=== PATIENT | male | born 1950 | race Caucasian/White ===

== ENCOUNTER 2019-10-30 06:22 | Outpatient (CLI) | payer MEDICARE, BC, OTHER ==
[2019-10-30 12:45] VITALS: BMI 28.5
[2019-10-30 14:49] LABS: #Eosinphils 0.4 thou/uL (0.0-0.7); #Lymphocytes 1.9 thou/uL (1.20-3.40); #Monocytes 0.8 thou/uL (0.11-0.59); #Neutrophils 3.5 thou/uL (1.40-6.50); %Basophils 0.7 % (0.0-1.0); %Eosinophils 6.3 % (0.0-10.0); %Lymphocytes 28.6 % (21.0-51.0); %Monocytes 12.3 % (0.0-10.0); %Neutrophils 52.1 % (42.0-75.0); Hemoglobin 13.6 g/dL (14.0-18.0); Mean Corpuscular HGB CONC 33.4 g/dL (32.0-36.0); Mean Platelet Volume 7.1 fL (7.4-10.4); Platelet Count 231 thou/uL (130-400); RBC Distribution Width 11.3 % (11.5-14.5); Red Blood Cell (RBC) Count 3.88 mill/uL (4.70-6.10); White Blood Cell (WBC) Count 6.6 thou/uL (4.8-10.8)
[2019-10-30 15:04] LABS: ALT (SGPT) 12 U/L (8-55); AST (SGOT) 18 U/L (5-34); Albumin 3.7 g/dL (3.4-4.8); Alkaline Phosphatase 56 U/L (40-110); Anion Gap 11 mmol/L (10-20); BUN (Urea Nitrogen) 17 mg/dL (8.4-25.7); Bilirubin, Total 0.3 mg/dL (0.2-1.2); Calc. Creatinine Clearance 59 mL/min (70-130); Calcium 9.1 mg/dL (7.8-10.44); Carbon Dioxide 24 mmol/L (23-31); Chloride 104 mmol/L (98-107); Estimated GFR-MDRD 44; Globulin 3.3 g/dL (2.4-3.5); Glucose 100 mg/dL (80-115); Sodium 135 mmol/L (136-145)
--- NOTE | 2019-10-30 21:15 | EKG ---
Test Reason : Blood Pressure : / mmHG Vent. Rate : 075 BPM Atrial Rate : 075 BPM P-R Int : 154 ms QRS Dur : 076 ms QT Int : 410 ms P-R-T Axes : 035 069 078 degrees QTc Int : 457 ms Normal sinus rhythm Nonspecific T wave abnormality Abnormal ECG When compared with ECG of 03-SEP-2016 10:01, Criteria for Anterior infarct are no longer Present Nonspecific T wave abnormality has replaced inverted T waves in Lateral leads Confirmed by Karlene GARIBAY ([id number]) on 10/30/2019 9:14:32 PM Referred By: RAY Confirmed By:Karlene GARIBAY
[2019-10-31 11:18] LABS: SARS-CoV-2 MS2 Positive; SARS-CoV-2 N Gene Negative; SARS-CoV-2 S Gene Negative; SARS-CoV-2 orf1ab Negative
== END 2019-10-30 06:23 | disposition home or self-care (01) ==
LOC: LABBT 06:22
PROVIDERS: ATTEND Specialist
DX: Z01.818 Encounter for other preprocedural examination (principal); Z11.59 Encounter for screening for other viral diseases; K80.12 Calculus of gallbladder with acute and chronic cholecystitis without obstruction; K44.9 Diaphragmatic hernia without obstruction or gangrene; K57.90 Diverticulosis of intestine, part unspecified, without perforation or abscess without bleeding
CPT/HCPCS: 80053; 85025; 93005; U0003; 87635; 93010

== ENCOUNTER 2019-11-02 10:27 | Day surgery (SDC) | payer MEDICARE, BC ==
[2019-11-02] MEDS ORDERED: Ketorolac Tromethamine 30 MG/ML VIAL ONE (10:38)
[2019-11-02] MEDS ORDERED: Acetaminophen 500 MG TAB ONE (10:38)
[2019-11-02] MEDS ORDERED: Lidocaine 1% w/Epinephrine 1:100K 20 ML VIAL ONE (11:26)
[2019-11-02] MEDS ORDERED: Bupivacaine 0.25% HCL 30 ML VIAL ONE (11:26)
[2019-11-02] MEDS ORDERED: Fentanyl 100 MCG/2 ML VIAL ONE (12:56)
[2019-11-02] MEDS ORDERED: Midazolam HCl 2 mg/2 ml Vial ONE (12:56)
[2019-11-02] MEDS ORDERED: Ondansetron PF 4 MG/2 ML Vial ONE (14:31)
[2019-11-02] MEDS ORDERED: Lidocaine 1% PF 5 ML VIAL ONE (14:31)
[2019-11-02] MEDS ORDERED: Glycopyrrolate 0.2 MG/ML 5 ML SYRINGE ONE (14:31)
[2019-11-02] MEDS ORDERED: Rocuronium Bromide 10 MG/ML (10ML VIAL) ONE (14:31)
[2019-11-02] MEDS ORDERED: PROPOFOL 200 MG/20 ML VIAL ONE (14:31)
[2019-11-02] MEDS ORDERED: Dexamethasone 20 MG/5 ML VIAL ONE (14:31)
[2019-11-02] MEDS ORDERED: SUGAMMADEX SODIUM 200 MG/2 ML VIAL ONE (14:52)
--- NOTE | 2019-11-04 07:34 | OP ---
DATE OF PROCEDURE: 11/02/2019 PREOPERATIVE DIAGNOSES: Cholelithiasis, cholecystitis. POSTOPERATIVE DIAGNOSES: Cholelithiasis, cholecystitis. PROCEDURE PERFORMED: Laparoscopic cholecystectomy. ANESTHESIA: General endotracheal. INDICATIONS: The patient is a 69-year-old white male. He has had about 8 weeks of persistent symptoms of gallbladder associated pain. He has had at least one emergency room visit during this time. He is taken to the operative room at this time for laparoscopic cholecystectomy. PROCEDURE IN DETAIL: Informed consent was obtained. The patient was taken to the operating room where general endotracheal anesthesia was obtained with the patient in the supine position. The abdomen was prepped with Betadine and draped in the usual sterile fashion. 0.25% Marcaine with epinephrine was infiltrated below the umbilicus and a 10 mm infraumbilical incision was created. A Veress needle was passed through this incision into the peritoneal cavity. A pneumoperitoneum was established using carbon dioxide up to a pressure of 15 mmHg. Local anesthetic was infiltrated and 3 additional 5 mm right upper quadrant incisions were created. Through the mid incision, a 5 mm port was passed into the peritoneal cavity. The camera was passed through this port and under direct vision, an 11 port was passed through the infraumbilical incision. The camera was replaced through this port, and under direct vision, 2 additional 5 mm ports were passed through the incisions already created. The gallbladder was grasped and retracted in a cephalad direction. Minimal adhesions were bluntly stripped away from the apex of the gallbladder, and the apex was retracted laterally and inferiorly. Careful dissection was carried out to the apex of the gallbladder to identify the cystic duct and cystic artery. These were each carefully dissected circumferentially. The duct was of normal caliber. Both the duct and the artery were divided between clips, leaving 2 on the side to remain within the abdomen. The gallbladder was then dissected out of the gallbladder fossa using electrocautery and removed through the infraumbilical port site. The fascia was closed with 0 Vicryl suture and a GraNee needle. The right upper quadrant was inspected and irrigated. All irrigant was aspirated. All ports and instruments were removed under direct vision. Pneumoperitoneum was carefully evacuated. Additional local anesthetic was infiltrated into each port site. The skin edges were approximated with 4-0 Monocryl subcuticular sutures, and Dermabond was placed externally. There were no complications. The patient tolerated the procedure well and was taken to the recovery room in stable condition. FINDINGS: The patient had a chronically inflamed gallbladder. The gallbladder wall was thickened and there were substantial pericholecystic adhesions and inflammatory changes. The duct was so inflamed that it actually tore with retraction, forcing me to find the divided proximal end. This was done and it was ligated appropriately with clips. There was no significant blood loss during the operation. There were no complications. The patient tolerated the procedure well and was taken to the recovery room in stable condition. Job ID: [id number]
== END 2019-11-02 16:25 | disposition home or self-care (01) ==
LOC: SDC 10:27
PROVIDERS: ATTEND Specialist
PROC: 0FT44ZZ Resection of Gallbladder, Percutaneous Endoscopic Approach (ICD-10-PCS; principal; 2019-11-02)
DX: K80.12 Calculus of gallbladder with acute and chronic cholecystitis without obstruction (principal); K82.8 Other specified diseases of gallbladder; K44.9 Diaphragmatic hernia without obstruction or gangrene; K57.90 Diverticulosis of intestine, part unspecified, without perforation or abscess without bleeding; I11.9 Hypertensive heart disease without heart failure; I25.2 Old myocardial infarction; Z79.01 Long term (current) use of anticoagulants; Z79.899 Other long term (current) drug therapy; Z95.5 Presence of coronary angioplasty implant and graft
CPT/HCPCS: 88304; J0690; J1100; J1885; J2001; J2250; J2405; J2704; J3010; S0020

== ENCOUNTER 2019-11-25 08:15 | Day surgery (SDC) | payer MEDICARE, BC ==
[2019-11-25] MEDS ORDERED: Ondansetron PF 4 MG/2 ML Vial ONE ×2 (08:48→11:05)
--- NOTE | 2019-11-25 08:52 | RAD ---
Exam: Chest one view HISTORY:Emesis since Tuesday. Surgery 3 weeks ago for cholecystectomy. Comparison: 09/09/2016 FINDINGS: Cardiac silhouette:Normal cardiac silhouette. There is coronary artery calcification. Aorta: Unremarkable Pulmonary vessels: Normal Costophrenic angles: Clear LUNGS: No masses or consolidation. Pneumothorax: None Osseous abnormalities: None Incidentals: Previously noted hiatal hernia is difficult to appreciate on the current exam. IMPRESSION: No acute cardiopulmonary process.
[2019-11-25 08:58] LABS: Hemoglobin 14.7 g/dL (14.0-18.0); Mean Corpuscular Hemoglobin 33.6 pg (27.0-31.0); Mean Corpuscular Volume 98.8 fL (78.0-98.0); Mean Platelet Volume 7.3 fL (7.4-10.4); Platelet Count 230 thou/uL (130-400); RBC Distribution Width 11.8 % (11.5-14.5); Red Blood Cell (RBC) Count 4.37 mill/uL (4.70-6.10); White Blood Cell (WBC) Count 7.6 thou/uL (4.8-10.8)
[2019-11-25 09:10] LABS: ALT (SGPT) 18 U/L (8-55); AST (SGOT) 24 U/L (5-34); Albumin 4.3 g/dL (3.4-4.8); Alkaline Phosphatase 76 U/L (40-110); Anion Gap 18 mmol/L (10-20); BUN (Urea Nitrogen) 32 mg/dL (8.4-25.7); Bilirubin, Total 1.2 mg/dL (0.2-1.2); Calc. Creatinine Clearance 0 mL/min (70-130); Calcium 9.6 mg/dL (7.8-10.44); Carbon Dioxide 18 mmol/L (23-31); Chloride 106 mmol/L (98-107); Estimated GFR-MDRD 33; Glucose 119 mg/dL (80-115); Lipase 48 U/L (8-78); Potassium 3.8 mmol/L (3.5-5.1); Protein, Total 8.3 g/dL (5.8-8.1); Sodium 138 mmol/L (136-145)
[2019-11-25 09:32] LABS: Eosinophils 4 % (0-10); Lymphocytes 17 % (21-51); MDiff Complete? YES; Monocytes 15 % (0-10); Neutrophil 62 % (42-75); Platelet Morphology Comment Appears Adequate; Reactive Lymphocytes 2 % (0-10)
--- NOTE | 2019-11-25 09:44 | CT ---
EXAM: CT ABDOMEN AND PELVIS HISTORY: Recent cholecystectomy. Nausea and vomiting base. COMPARISON: 10/22/2019 Procedure: Multiple contiguous axial images were obtained and a CT of the abdomen and pelvis with IV contrast. C oronal reformats were performed. FINDINGS: Lower Chest: Chronic changes along bases Vessels: Normal caliber aorta. No periaortic fat stranding. Heart: Normal heart size. No significant pericardial fluid Abdomen: Portal vein:Patent Gallbladder: Interval cholecystectomy. Gallbladder is surgically absent. Small areas of hypoattenuati on approximately 1.2 cm, in the gallbladder fossa are noted and may represent postsurgical change. A small bile leak cannot be entirely excluded. Consider HIDA scan. There is no evidence of an abscess at the operative site. Liver: Small areas of ill-defined hypoattenuation in the liver parenchyma near the gallbladder fossa may represent iatrogenic change. No enhancing masses or significant perihepatic hematoma. Pancreas: within normal limits. Spleen: within normal limits. Adrenals: within normal limits. Kidneys: Symmetric enhancement. No obstructive uropathy. Peritoneum: No ascites or free air, no fluid collection. Bowel: Limited evaluation due to the lack of oral contrast administration. No evidence of bowel obstr uction. Ileocecal junction is unremarkable. Normal caliber appendix. Scattered fecal material in a nondistended, nondilated colon. Diverticulosis, without evidence of diverticulitis. Stable moderate h iatal hernia. Mesentery and Retroperitoneum: No enlarged mesenteric or retroperitoneal lymph nodes. Abdominal Wall: Small umbilical hernia containing mesenteric fat. Pelvis: Reproductive Organs: Reproductive organs are unremarkable. Pelvis: No mass, lymphadenopathy, free air or free fluid. Bladder: within normal limits. Bones: within normal limits. IMPRESSION: 1. Findings compatible with recent cholecystectomy. Small hypodensity in the operative bed may repres ent postsurgical change. If there is concern for bile leak, consider HIDA scan. 2. Stable moderate hiatal hernia. 3. No evidence of bowel obstruction. Diverticulosis, without evidence of diverticulitis. 4. Normal caliber appendix.
[2019-11-25] MEDS ORDERED: PROPOFOL 200 MG/20 ML VIAL ONE (11:05)
[2019-11-25] MEDS ORDERED: Succinylcholine Chloride 20 MG/ML 10 ml SYRINGE FS ONE (11:05)
[2019-11-25] MEDS ORDERED: Dexamethasone 20 MG/5 ML VIAL ONE (11:05)
[2019-11-25] MEDS ORDERED: diphenhydrAMINE 50 MG/ML VIAL ONE (11:05)
[2019-11-25] MEDS ORDERED: Fentanyl 100 MCG/2 ML VIAL ONE (11:08)
[2019-11-25] MEDS ORDERED: Iopamidol-370 76% 500 ML 1 ML ONE (13:28)
--- NOTE | 2019-11-25 13:32 | HP ---
DATE OF CONSULTATION: 11/25/2019 REQUESTING PHYSICIAN: Sophia Shaffer MD REASON FOR CONSULTATION: Possible esophageal foreign body. HISTORY OF PRESENT ILLNESS: Ayo Siddiqui is a 69-year-old man, who has seen my GI colleague, Dr. Junior Perez in the past. He had an EGD and a colonoscopy in May 2015. The EGD showed distal esophageal stricture, which was dilated with a balloon as well as a small hiatal hernia. The colonoscopy showed some diverticulosis and was otherwise normal. The patient has not followed up with Dr. Perez since then. He reports that on a chronic intermittent basis, he will have some dysphagia to solids. He will regurgitate food particles several times per year and usually the sensation will resolve on its own. He is not taking any acid suppression. This has been going on for quite some time now. He actually underwent a laparoscopic cholecystectomy recently on 11/02/2019, with Dr. Sparks and was found to have a paraesophageal hiatal hernia. He has recovered well from his gallbladder surgery. Dr. Sparks has been considering him for hiatal hernia repair and had actually referred him back to Dr. Perez for consideration of repeat EGD and esophageal manometry, but the patient had not been able to follow up yet. Two days ago, the patient was eating some steak and salad and he felt as if food lodged in the lower chest. He drank some water and vomited up some food particles, but unfortunately since that time he has been unable to tolerate any oral intake. He cannot tolerate solids or even liquids at this point. He is handling his secretions okay, but a 30 mL fluid challenge here in the ER was unsuccessful. He has a bit of mild lower chest discomfort, but not much. No shortness of breath. No other symptoms. REVIEW OF SYSTEMS: Full review of systems including constitutional, head, eyes, ears, nose, throat, GI, , cardiovascular, respiratory, musculoskeletal, and neurologic systems is negative except as noted in the HPI. PAST MEDICAL HISTORY: Hyperlipidemia; anxiety; cholecystitis, status post cholecystectomy on 11/02/2019; congestive heart failure with ejection fraction 35% to 40%; hypertension; thyroid disease; urothelial cancer; history of ND; paraesophageal hiatal hernia; esophageal stricture, status post dilation in May 2015; colonic diverticulosis with last colonoscopy in 2014. ALLERGIES: NO KNOWN DRUG ALLERGIES. OUTPATIENT MEDICATIONS: 1. Lisinopril 5 mg daily. 2. Crestor 40 mg daily. 3. Eliquis 5 mg b.i.d. 4. Levothyroxine. 5. Spironolactone. 6. Alprazolam. SOCIAL HISTORY: He does not smoke. FAMILY HISTORY: Noncontributory. PHYSICAL EXAMINATION: VITAL SIGNS: Pulse 59, blood pressure 140/79, and oxygen saturation 100% on room air. GENERAL: A 69-year-old man, sitting up in bed comfortably, in no distress. SKIN: No jaundice. No rashes were palpable. EYES: No scleral icterus. Extraocular movements intact. ENT: Mucous membranes moist. No oral lesions. LYMPH: No submandibular or supraclavicular lymphadenopathy. THYROID: Nontender to palpation. HEART: Regular rate and rhythm. LUNGS: Clear to auscultation bilaterally. ABDOMEN: Bowel sounds present. Soft and nontender to palpation. EXTREMITIES: No peripheral edema. VESSELS: Radial pulses 2+ bilaterally. NEURO: Cranial nerves II through XII intact bilaterally. No focal deficits. LABORATORY STUDIES: Sodium 138, potassium 3.8, BUN 32, and creatinine 2.02. LFTs all normal with total bilirubin 1.2, alkaline phosphatase 76, AST 24, ALT 18 albumin 4.3, and lipase 48. WBC 7.6, hemoglobin 14.7, and platelets 230. IMAGING STUDIES: Chest x-ray shows no acute process. CT of the abdomen and pelvis shows a stable moderate hiatal hernia. No evidence of bowel obstruction. Diverticulosis with no diverticulitis, changes of recent cholecystectomy with postsurgical changes in the operative bed. Normal appendix. ASSESSMENT AND PLAN: 1. Probable esophageal foreign body, with obstructive symptoms starting 2 days ago. 2. History of esophageal stricture, dilated back in 2014. 3. Paraesophageal hiatal hernia, noted on recent laparoscopic cholecystectomy. The patient was unable to tolerate a fluid challenge and has been unable to have any significant oral intake over the past couple of days. This is suggestive of persistent esophageal foreign body. We will have to proceed with EGD on an urgent basis today. We will clear the obstruction and try to identify whether this represents a stricture, worsening hiatal hernia, hypertonic lower esophageal sphincter, etc. I discussed with the patient that in the context of a few foreign body, I usually do not perform esophageal dilation as the risk is increased in this context. He may have to follow up for esophageal dilation in the coming weeks. Also note that he does take Eliquis. I anticipate that the patient will be able to be discharged home from the PACU following the procedure, and we will have him follow up with Dr. Perez in the next few weeks as was already planned. Job ID: [id number]
--- NOTE | 2019-11-25 21:17 | OP ---
DATE OF PROCEDURE: 11/25/2019 SUPERINTENDENT OIL FIELD DRILLING SURGEON: None. PROCEDURE PERFORMED: Esophagogastroduodenoscopy with foreign body removal. INDICATION: Esophageal food bolus impaction with a history of chronic dysphagia and known paraesophageal hiatal hernia. MEDICATIONS: See Anesthesia record. FINDINGS: After discussion of the risks, benefits, and alternatives of the procedure, informed consent was obtained and witnessed. Pre-endoscopic cardiopulmonary examination was satisfactory. Time-out was performed before sedation was achieved. Sedation was achieved with Anesthesia assistance in the endoscopy unit. The patient was endotracheally intubated under general anesthesia for airway protection. He was placed in the left lateral decubitus position. A Pentax adult upper endoscope was placed into the oropharynx and passed through the cricopharyngeus under direct visualization. The mid and distal esophageal lumen was dilated and tortuous. In the distal esophagus from 35 to 38 cm, there is a large meat bolus impaction with copious fluid above the impacted area. Using a Russell Net and rat-tooth grasper forceps, we were able to completely remove the meat impaction from the distal esophagus. Upon examination of this area from 35 to 38 cm, there are severe macerations. At the GE junction, this is quite significant. There is no clear fibrotic stricture in this area, though it is quite tortuously angulated. Overall the appearance of the distal esophagus and GE junction, this is suspicious for possible motility disorder such as achalasia. Given the degree of maceration, no esophageal dilation procedure was performed today. The endoscope was advanced into the stomach. Forward and retroflexed views of the entire gastric mucosa were obtained. The patient has a large paraesophageal hiatal hernia. The distance from the GE junction to the diaphragmatic pinch is only 6 cm from 38 to 44 cm. However, the entire proximal stomach, almost one-half of the volume of the gastric lumen, is above the diaphragmatic pinch. The endoscope was passed into the distal stomach. There are multiple shallow erosions consistent with erosive gastritis. There was no evidence of bleeding. Biopsies were obtained from the gastric antrum and body to rule out Helicobacter pylori infection. The endoscope was passed through the pylorus and into the first and second portions of the duodenum, which appeared normal. The upper endoscope was completely withdrawn, and the patient allowed to recover. The patient tolerated the procedure well. There were no immediate postprocedure complications. IMPRESSION: 1. Large meat impaction in the distal esophagus from 35 to 38 cm, with maceration of the mucosa in this area. Food bolus removed. No esophageal dilation performed. 2. Tortuous dilated distal esophagus with no clear fibrotic stricture, suspicious for motility disorder such as achalasia. 3. Large paraesophageal hiatal hernia involving the proximal stomach, almost half of the gastric lumen above the diaphragm. GE junction is at 38 cm, and diaphragmatic pinch is at 44 cm. 4. Erosive gastritis in the antrum, biopsied. RECOMMENDATIONS: 1. Start PPI, pantoprazole 40 mg twice daily. 2. Follow up results of gastric biopsies. 3. Follow up with Dr. Perez in the outpatient setting for repeat EGD in the next 1 to 2 weeks, for reassessment and possible esophageal dilation. Dr. Sparks had also recommended motility study be pursued. 4. Liquid/pureed diet until then. 5. Plan to discharge the patient home from the PACU. Job ID: [id number]
== END 2019-11-25 17:50 | disposition home or self-care (01) ==
LOC: ERS 08:15 → SDC 14:36
PROVIDERS: ATTEND Specialist
PROC: 0DC38ZZ Extirpation of Matter from Lower Esophagus, Via Natural or Artificial Opening Endoscopic (ICD-10-PCS; principal; 2019-11-25)
PROC: 0DB78ZX Excision of Stomach, Pylorus, Via Natural or Artificial Opening Endoscopic, Diagnostic (ICD-10-PCS; 2019-11-25)
DX: T18.128A Food in esophagus causing other injury, initial encounter (principal); K29.50 Unspecified chronic gastritis without bleeding; K25.9 Gastric ulcer, unspecified as acute or chronic, without hemorrhage or perforation; K44.9 Diaphragmatic hernia without obstruction or gangrene; K57.90 Diverticulosis of intestine, part unspecified, without perforation or abscess without bleeding; E78.5 Hyperlipidemia, unspecified; F41.9 Anxiety disorder, unspecified; I11.0 Hypertensive heart disease with heart failure; I50.9 Heart failure, unspecified; I25.2 Old myocardial infarction; I25.10 Atherosclerotic heart disease of native coronary artery without angina pectoris; F17.220 Nicotine dependence, chewing tobacco, uncomplicated; Z79.01 Long term (current) use of anticoagulants; Z79.899 Other long term (current) drug therapy
CPT/HCPCS: 71045; 74177; 80053; 83690; 84484; 85025; 88305; 88312; 93005; 96361; 96374; 96375; J1100; J1200; J2405; J2704; J3010; Q9967

== ENCOUNTER 2019-12-31 06:34 | Outpatient (CLI) | payer MEDICARE, BC, OTHER ==
[2020-01-01 12:20] LABS: SARS-CoV-2 MS2 Positive; SARS-CoV-2 N Gene Negative; SARS-CoV-2 S Gene Negative; SARS-CoV-2 orf1ab Negative
== END 2019-12-31 06:35 | disposition home or self-care (01) ==
LOC: LABBT 06:34
PROVIDERS: ATTEND Internal Medicine Gastroenterology
DX: Z01.812 Encounter for preprocedural laboratory examination (principal); Z11.59 Encounter for screening for other viral diseases; R13.10 Dysphagia, unspecified
CPT/HCPCS: 87635; U0003

== ENCOUNTER → 2020-01-03 | Day surgery (SDC) | payer MEDICARE, BC | LOC: ENDO/OP 07:47 | PROVIDERS: ATTEND Internal Medicine Gastroenterology | DX: K44.9 Diaphragmatic hernia without obstruction or gangrene (principal); R13.10 Dysphagia, unspecified; K57.90 Diverticulosis of intestine, part unspecified, without perforation or abscess without bleeding | CPT/HCPCS: 91010 ==

== ENCOUNTER 2021-11-27 08:37 | Outpatient (CLI) | payer MEDICARE, BC ==
[2021-11-27 10:36] LABS: Bilirubin Neg (Negative); Blood, Urine 250 (Negative); Clarity Clear (Clear); Glucose, Urine (Dipstick) Normal (Negative); Ketone, Urine Negative (Negative); Leukocyte Negative (Negative); Nitrite Negative (Negative); Protein, Urine (Dipstick) 100 mg/dl (Neg-Trace); Specific Gravity, Urine 1.015 (1.002-1.036); Urobilinogen Normal mg/dL (Less than 2)
[2021-11-27 10:41] LABS: Hemoglobin 10.2 g/dL (13.5-17.5); Mean Corpuscular HGB CONC 31.5 g/dL (32.0-36.0); Mean Corpuscular Volume 101.6 fl (81.2-95.1); Mean Platelet Volume 10.4 fl (7.4-10.4); Platelet Count 175 10x3/uL (150-450); RBC Distribution Width 13.6 % (11.5-14.5); Red Blood Cell (RBC) Count 3.19 10x6/uL (4.32-5.72); White Blood Cell (WBC) Count 4.5 10x3/uL (3.5-10.5)
[2021-11-27 10:51] LABS: INR-International Normal Ratio 1.1; PTT 26.2 sec (22.0-33.0); Prothrombin Time 11.4 sec (9.5-12.1)
[2021-11-27 10:54] LABS: Anion Gap 12 mmol/L (10-20); BUN (Urea Nitrogen) 21 mg/dL (8.4-25.7); Calc. Creatinine Clearance 0 mL/min (70-130); Calcium 8.8 mg/dL (7.8-10.44); Carbon Dioxide 24 mmol/L (23-31); Chloride 109 mmol/L (98-107); Glucose 92 mg/dL (80-115); Potassium 4.3 mmol/L (3.5-5.1); Sodium 141 mmol/L (136-145)
== END 2021-11-27 08:38 | disposition home or self-care (01) ==
LOC: LABBT 08:37
PROVIDERS: ATTEND Urology
DX: Z01.812 Encounter for preprocedural laboratory examination (principal); D49.4 Neoplasm of unspecified behavior of bladder; Z20.822 Contact with and (suspected) exposure to COVID-19
CPT/HCPCS: 80048; 81003; 85027; 85610; 85730; 87086; U0003; U0005

== ENCOUNTER 2021-12-01 10:56 | Day surgery (SDC) | payer MEDICARE, BC ==
[2021-11-26 12:37] VITALS: BMI 28.7
[2021-12-01] MEDS ORDERED: Norepinephrine 4 MG/4 ML VIAL ONE (12:47)
[2021-12-01] MEDS ORDERED: Phenylephrine 10 MG/ML VIAL ONE (12:47)
[2021-12-01] MEDS ORDERED: Iopamidol 30 ML ONE (13:52)
[2021-12-01] MEDS ORDERED: Ketamine 50 MG/ML (10ML VIAL) ONE (13:53)
[2021-12-01] MEDS ORDERED: Fentanyl 100 MCG/2 ML VIAL ONE (14:00)
== END 2021-12-01 16:25 | disposition home or self-care (01) ==
LOC: SDC 10:56
PROVIDERS: ATTEND Urology
PROC: 0TJ98ZZ Inspection of Ureter, Via Natural or Artificial Opening Endoscopic (ICD-10-PCS; principal; 2021-12-01)
PROC: 0TBB8ZX Excision of Bladder, Via Natural or Artificial Opening Endoscopic, Diagnostic (ICD-10-PCS; 2021-12-01)
DX: N30.20 Other chronic cystitis without hematuria (principal); I12.9 Hypertensive chronic kidney disease with stage 1 through stage 4 chronic kidney disease, or unspecified chronic kidney disease; N18.9 Chronic kidney disease, unspecified; I25.10 Atherosclerotic heart disease of native coronary artery without angina pectoris; Z85.51 Personal history of malignant neoplasm of bladder; Z85.54 Personal history of malignant neoplasm of ureter; Z86.73 Personal history of transient ischemic attack (TIA), and cerebral infarction without residual deficits; Z79.01 Long term (current) use of anticoagulants; Z79.82 Long term (current) use of aspirin; Z79.890 Hormone replacement therapy; Z79.899 Other long term (current) drug therapy; Z95.5 Presence of coronary angioplasty implant and graft
CPT/HCPCS: 74420; 88305; J1956; J2370; J3010; Q9967